=== PATIENT | female | born 1965 | race African-American/Black ===

== ENCOUNTER 2025-07-30 12:05 | Emergency (ER) | payer OTHER ==
[~2025-07-30] VITALS: Ht 167.6 cm; Wt 59.0 kg
[2025-07-30] MEDS ORDERED: ONDANSETRON 4 MG/2 ML VIAL ONE (12:59)
[2025-07-30 13:06] LABS: PLATELET COUNT (AUTO) 217 K/uL (179-408); RED BLOOD CELL COUNT(AUTO) 4.03 MIL/uL (3.63-4.92); RED CELL DISTRIBUTION WIDTH 13.2 % (12.3-17.7); WHITE BLOOD COUNT (AUTO) 5.0 K/uL (3.8-11.8)
[2025-07-30] MEDS: IV NS 1000 ML 1,000 ML IV ONE (13:09)
[2025-07-30] MEDS: ONDANSETRON 4 MG/2 ML VIAL IV ONE (13:09)
[2025-07-30 13:17] LABS: ASPARTATE AMINOTRANSFERASE 21 U/L (15-37); CREATININE 1.0 mg/dL (0.6-1.3); SODIUM SERUM 141 mmol/L (136-145); TOTAL PROTEIN, SERUM 6.8 g/dL (6.4-8.2); UREA NITROGEN, BLOOD 19 mg/dL (7-18)
[2025-07-30 14:30] VITALS: BP 130/81
[2025-07-30 15:20] VITALS: BP 130/81; O2SAT 99
== END 2025-07-30 15:20 | disposition home or self-care (01) ==
LOC: ER 12:05
DX: R55 Syncope and collapse (principal); R11.0 Nausea; R53.81 Other malaise; Z88.0 Allergy status to penicillin
CPT/HCPCS: 99285; 96360; 71045; 80076; 80048; 85025; 84484; 36415; 93005; J2405; J7040; A4606; A4663